=== PATIENT | female | born 1960 | race Caucasian/White ===

== ENCOUNTER 2017-08-17 15:26 | Emergency (ER) | payer MEDICARE, MEDICAID ==
--- NOTE | 2017-08-17 14:17 | EDM.PDOC ---
ED HPI GENERAL MEDICAL PROBLEM - General Stated Complaint: IN BY AMBULANCE Time Seen by Provider: 08/17/17 14:00 Source of Information: Reports: Patient History Limitations: Reports: No Limitations - History of Present Illness INITIAL COMMENTS - FREE TEXT/NARRATIVE: This 57 yo female patient was brought to the ED by [facility] due to a ground level fall. The patient reports that she was in her wheelchair attempting to cross the street when the wheelchair fell off the curb. The patient reports that she hit the back of her head during the fall. The patient has a history of 7 previous strokes causing her to be in a wheelchair. The patient reports that she pushes the wheelchair backwards in order to move. The patient denies any loss of consciousness before, during or after the fall. The patient reports that she has pain to the back of her head and pain to her neck with movement. Onset: Today Duration: Minutes: Location: Reports: Head (posterior scalp), Neck (right sided neck stiffness) Quality: Reports: Ache, Dull, Throbbing Improves with: Reports: None Worsens with: Reports: None Associated Symptoms: Reports: No Other Symptoms - Related Data Allergies Allergy/AdvReac Type Severity Reaction Status Date / Time shellfish derived Allergy Airway Verified 01/12/15 11:30 Tightness Home Meds: Home Meds Aspirin/Calcium Carbonate/Mag [Aspirin Buffered 325 mg Tab] 325 mg PO DAILY [History] DULoxetine HCl [Cymbalta] 60 mg PO DAILY 01/12/15 [History] Dextromethorphan HBr/Quinidine [Nuedexta 20-10 MG] 1 each PO BEDTIME 01/12/15 [ History] Docusate Sodium [Colace] 100 mg PO BID 01/12/15 [History] Insulin Glarg,Human.Rec.Analog [Lantus] 120 unit SUBCUT BEDTIME 01/12/15 [ History] Isosorbide Mononitrate [Imdur] 60 mg PO DAILY 01/12/15 [History] Metoprolol Tartrate [Lopressor] 50 mg PO BID 01/12/15 [History] Nitroglycerin [Nitrostat] 0.4 mg SL Q5M PRN 01/12/15 [History] Potassium Chloride [Klor-Con M20] 20 meq PO DAILY 01/12/15 [History] Pregabalin [Lyrica] 75 mg PO BID 01/12/15 [History] Rosuvastatin [Crestor] 40 mg PO BEDTIME 01/12/15 [History] Warfarin [Coumadin] 2 mg PO .FRI SUN 01/12/15 [History] Warfarin [Coumadin] 4 mg PO .MONTUESWEDTHURSAT 01/12/15 [History] traMADol [Ultram] 50 mg PO Q8H PRN 01/12/15 [History] Amoxicillin/Clavulanate K [Augmentin 875 MG/125 MG] 1 tab PO Q12HR #14 tablet [Rx] Mupirocin Oint [Bactroban Oint] 1 gm TOP TID #1 tube 01/15/15 [Rx] Sulfamethoxazole/Trimethoprim [Septra DS] 1 tab PO BID #14 tablet 01/15/15 [Rx] Past Medical History Other OB/BYN History: polyps on uterus and ovaries Other Neuro History: Psuedo Bulbar affect disorder Other Psychiatric History: Psuedo Bulbar Disorder Other Dermatologic History: Diabetic ulcers to bilateral legs ED ROS GENERAL - Review of Systems Review Of Systems: ROS reveals no pertinent complaints other than HPI. ED EXAM, HEAD INJURY - Physical Exam Exam: See Below Exam Limited By: No Limitations General Appearance: Alert, WD/WN, Mild Distress Head: Scalp Hematoma (posterior ), Scalp Tenderness Nexus Criteria: Painful Distraction Injuries. No: Posterior, Midline Cervical Tenderness, Evidence of Intoxication, Altered Level of Consciousness, Focal Neurological Deficit Eyes: Bilateral Eye: EOMI, Normal Inspection, PERRL Ears: Normal External Exam, Normal Canal, Hearing Grossly Normal, Normal TMs Nose: Normal Inspection, Normal Mucousa, No Blood Throat/Mouth: Normal Inspection, Normal Lips, Normal Teeth, Normal Gums, Normal Oropharynx, Normal Voice, No Airway Compromise Neck: Limited Range of Motion (to to pain with movement) Respiratory: No Respiratory Distress, Lungs Clear, Normal Breath Sounds, No Accessory Muscle Use, Chest Non-Tender Cardiovascular: Normal Peripheral Pulses, Regular Rate, Rhythm, No Edema, No Gallop, No JVD, No Murmur, No Rub GI/Abdominal Exam: Normal Bowel Sounds, Soft, Non-Tender, No Organomegaly, No Distention, No Abnormal Bruit, No Mass (Female) Exam: Deferred Rectal (Female) Exam: Deferred Back Exam: Full Range of Motion, Normal Inspection, NT Extremities: Normal Inspection, Normal Range of Motion, Non-Tender, No Pedal Edema, Normal Capillary Refill Neurologic: hair salon manager II-XII nml As Tested, No Motor/Sensory Deficits, Alert, Normal Mood/Affect, Oriented x 3 Skin: Normal Color - Sandrine Coma Score Best Eye Response ([place]): (4) Open Spontaneously Best Verbal Response (Sand[place]): (5) Oriented Best Motor Response ([place]): (6) Obeys Commands Sandrine Total: 15 Course - Orders/Labs/Meds Labs: Laboratory Tests 08/17/17 08/17/17 08/17/17 Range/Units 13:58 13:58 13:58 WBC 6.0 (5.0-10.0) 10^3/uL RBC 4.37 (4.2-5.4) 10^6/uL Hgb 12.5 (12.0-16.0) g/dL Hct 38.4 (37.0-47.0) % MCV 87.9 (80-100) fL MCH 28.6 (27.0-34.0) pg MCHC 32.6 L (33.0-35.0) g/dL Plt Count 178 (150-450) 10^3/uL Neut % (Auto) 48.7 (42.2-75.2) % Lymph % (Auto) 42.1 (20.5-50.1) % [place] % (Auto) 6.1 (2-8) % Eos % (Auto) 2.8 (1.0-3.0) % Baso % (Auto) 0.3 (0.0-1.0) % PT 20.6 H (9.0-12.0) SEC INR 2.1 H (0.9-1.2) Sodium 134 L (135-145) mmol/L Potassium 5.0 (3.6-5.0) mmol/L Chloride 99 L (101-111) mmol/L Carbon Dioxide 27.0 (21.0-31.0) mmol/L Anion Gap 13.0 BUN 23 H (7-18) mg/dL Creatinine 1.2 (0.6-1.3) mg/dL Est Cr Clr Drug Dosing TNP Estimated GFR (MDRD) 46 BUN/Creatinine Ratio 19.16 Glucose 457 H* (74-105) mg/dL Calcium 8.9 (8.4-10.2) mg/dl Total Bilirubin 0.6 (0.2-1.0) mg/dL AST 24 (10-42) IU/L ALT 25 (10-60) IU/L Alkaline Phosphatase 98 (42-121) IU/L Total Protein 6.5 L (6.7-8.2) g/dl Albumin 2.9 L (3.2-5.5) g/dl Globulin 3.6 Albumin/Globulin Ratio 0.81 Meds: Medications Discontinued Medications Generic Name Dose Route Start Last Admin Trade Name Freq PRN Reason Stop Dose Admin Insulin Aspart 50 unit 08/17/17 15:09 Novolog SUBCUT 08/17/17 15:10 ONETIME ONE Departure - Departure Time of Disposition: 15:20 Disposition: Home, Self-Care 01 Condition: Fair Clinical Impression: Hyperglycemia, Fall from ground level Contusion Qualifiers: Encounter type: initial encounter Contusion area: head Contusion of head detail : scalp Qualified Code(s): S00.03XA - Contusion of scalp, initial encounter - Discharge Information Instructions: Hyperglycemia, [id number] Forms: ED Department Discharge Care Plan Goals: The patient was advised of the examination, lab and CT results during the visit. The patient was given 50 units of Novolog while in the ED for high blood sugar levels. The patient was encourage to compress and ice the contusion to the posterior head. If the patient has any additional symptoms or concerns, the patient should follow-up with her primary care facility or return to the emergency department.
[2017-08-17 14:31] LABS: CHLORIDE,CL 99 mmol/L (101-111); SODIUM,NA 134 mmol/L (135-145)
--- NOTE | 2017-08-17 14:55 | CT ---
Clinical history: 57-year-old hypertensive and obese diabetic female on anticoagulants injured in a f all (from wheelchair). TECHNIQUE: Volume acquisition of data emergency unenhanced CT scan of the cervical spine obtained whi pierce the patient was lying supine on the Siemens multi slice scanner [place], [place]. All data archived in the PACS system for storage, reformatting and study. 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 interspace narrowing. Hypertrophic marginal/uncinate spur formati on C3-C4, C4-5, C5-6 and C6-C7 levels. *No sign of prevertebral soft tissue swelling, acute cervical spine fracture, spondylolisthesis or ju mped locked facet. Scoliosis.
--- NOTE | 2017-08-17 15:00 | CT ---
Clinical history: 57-year-old obese diabetic female injured in fall from wheelchair (patient on antic oagulants). TECHNIQUE: Volume acquisition of data emergency unenhanced CT scan of the head and brain obtained wit h the patient was lying supine on the Siemens multi slice CT scanner [place], [place]. All data archived in the PACS system for storage, reformatting and study (below/brai n windows). Note: significant positional artifact. Interpretation: Uniformly thick bony calvarium and no sign of skull fracture, underlying brain contus ion or extracerebral/intracranial epidural/subdural hematoma. (Dense calcifications in the falx that were present anteriorly midline on December 2014 CT exam) No new evidence of acute cerebral, intraventricular or subarachnoid bleed. Suspicious focal area decreased attenuation patient's brainstem (axial scan slice #13) that could ref lect positional artifact however close clinical correlation requested. No other new areas of ischemic infarct identified in the interval since 12 January 2015 exam. CONCLUSION: No new evidence skull fracture or acute intracranial bleed. See comment regarding brainst em above.
[2017-08-17] MEDS: Insulin Aspart 100 Units/ML 3 ML Pen SUBCUT ONE (15:20)
== END 2017-08-17 15:52 | disposition home or self-care (01) ==
LOC: DL.ED 15:26
DX: S00.03XA Contusion of scalp, initial encounter (principal); R73.9 Hyperglycemia, unspecified; Z79.82 Long term (current) use of aspirin; Z79.899 Other long term (current) drug therapy; Z91.013 Allergy to seafood; W05.0XXA Fall from non-moving wheelchair, initial encounter; Y92.410 Unspecified street and highway as the place of occurrence of the external cause
CPT/HCPCS: 36415; 70450; 72125; 80053; 82962; 85025; 85610; 96372; 99285; J1815

== ENCOUNTER 2018-12-06 13:49 | Emergency (ER) | payer MEDICARE, MEDICAID ==
--- NOTE | 2018-12-06 13:50 | EDM.PDOC ---
ED HPI GENERAL MEDICAL PROBLEM - General Chief Complaint: Upper Extremity Injury/Pain Stated Complaint: AMBULANCE Time Seen by Provider: 12/06/18 13:50 Source of Information: Reports: Patient, EMS, Group Home Records, Old Records , RN, RN Notes Reviewed History Limitations: Reports: No Limitations - History of Present Illness INITIAL COMMENTS - FREE TEXT/NARRATIVE: Pt arrives to ER from [facility] with report of left shoulder pain sustained about 3 days ago from a ground level fall that occurred as she was transferring from a commode to her wheelchair. Denies head injury or neck pain. [facility] staff reported pt is drowsy today, but unknown duration of drowsiness. EMS crew reports pt has low BP today. Pt complains of left should pain. Pt denies chest pain now or recently, but later in ER course she did admit to "severe heart burn" recently which she attributed to acid reflux. She denies feeling drowsy or lightheaded. Pt denies nausea, vomiting, cough, dysuria , fever, chills, or any other complaints. Onset: Unknown/Unsure Duration: Day(s): (3-4), Constant Location: Reports: Upper Extremity, Left Quality: Reports: Ache Severity: Severe Improves with: Reports: Immobilization Worsens with: Reports: Movement Context: Reports: Other (Fall) Associated Symptoms: Reports: No Other Symptoms - Related Data Allergies Allergy/AdvReac Type Severity Reaction Status Date / Time fish derived Allergy Airway Verified 02/01/18 10:16 Tightness shellfish derived Allergy Airway Verified 01/12/15 11:30 Tightness shrimp Allergy Airway Verified 02/01/18 10:16 Tightness Home Meds: Home Meds Aspirin/Calcium Carbonate/Mag [Aspirin Buffered 325 mg Tab] 325 mg PO DAILY [History] DULoxetine HCl [Cymbalta] 60 mg PO DAILY 01/12/15 [History] Dextromethorphan HBr/Quinidine [Nuedexta 20-10 MG] 1 cap PO BEDTIME 01/12/15 [ History] Docusate Sodium [Colace] 100 mg PO DAILY 01/12/15 [History] Isosorbide Mononitrate [Imdur] 60 mg PO DAILY 01/12/15 [History] Metoprolol Tartrate [Lopressor] 50 mg PO BID 11/16/15 [History] Potassium Chloride [Klor-Con M20] 20 meq PO DAILY 01/12/15 [History] Rosuvastatin [Crestor] 40 mg PO BEDTIME 01/12/15 [History] Warfarin [Coumadin] 2 mg PO .FRI SUN 01/12/15 [History] Warfarin [Coumadin] 4 mg PO .MONWEDFRI 01/12/15 [History] Acetaminophen [Tylenol Arthritis Pain] 650 mg PO Q4HR PRN 02/01/18 [History] Insulin Aspart [NovoLOG] 4 unit SUBCUT DAILY 02/01/18 [History] Insulin Detemir [Levemir Flextouch] 60 unit SQ BID 02/01/18 [History] Insulin Aspart [NovoLOG] 10 units SUBCUT TID 12/06/18 [History] Past Medical History Cardiovascular History: Reports: Angina, High Cholesterol, Hypertension Other Respiratory History: unable to assess; no hx seen on papers Other Gastrointestinal History: unable to assess Genitourinary History: Reports: Other (See Below) Other Genitourinary History: hyperkalemia 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: polyps on uterus and ovaries Other Musculoskeletal History: unable to assess Neurological History: Reports: CVA (per pt.) Other Neuro History: Psuedo Bulbar affect disorder Psychiatric History: Reports: Mood Swings, Psychosis, Suicidal Ideation Other Psychiatric History: Psuedo Bulbar Disorder Endocrine/Metabolic History: Reports: Diabetes, Type II, Obesity/BMI 30+ Other Hematologic History: unable to assess Other Immunologic History: unable to assess Other Oncologic History: unable to assess Other Dermatologic History: 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 ED EXAM, GENERAL - Physical Exam Exam: See Below Exam Limited By: No Limitations General Appearance: Alert, No Apparent Distress, Obese Eye Exam: Bilateral Eye: EOMI, Normal Inspection, PERRL Ears: Normal External Exam, Hearing Grossly Normal Nose: Normal Inspection, Normal Mucosa, No Blood Throat/Mouth: Normal Inspection, Normal Lips, Normal Voice, No Airway Compromise Head: Atraumatic, Normocephalic Neck: Normal Inspection, Non-Tender, Full Range of Motion Respiratory/Chest: No Respiratory Distress, Lungs Clear, No Accessory Muscle Use , Chest Non-Tender, Decreased Breath Sounds Cardiovascular: Regular Rate, Rhythm Peripheral Pulses: 3+: Radial (L), Radial (R) GI/Abdominal: Normal Bowel Sounds, Soft, Non-Tender, No Distention, Other ( Benign obese abdomen) (Female) Exam: Deferred Rectal (Female) Exam: Deferred Back Exam: Normal Inspection Extremities: Normal Capillary Refill, Limited Range of Motion (Left shoulder), Other (Generalized left shoulder tenderness with no visible swelling, bruising, or skin disruption). No: Joint Swelling, Increased Warmth, Mottled, Pallor, Redness Neurological: Alert, Oriented, Other (Chronic left hemiparesis, stable) Psychiatric: Depressed Mood, Flat Affect Skin Exam: Warm, Dry, Intact, Normal Color, No Rash EKG INTERPRETATION EKG Date: 12/06/18 Time: 14:44 Rhythm: Other (SR) Rate (Beats/Min): 75 [place]: Normal P-Wave: Present QRS: Normal ST-T: Depressed (Lead 1, and lateral leads possibly representing ischemia) QT: Normal Comparison: Change From Previous EKG (Lateral lead depression is new compared to EKG dated 01/2018.) Course - Vital Signs Last Recorded V/S: Last Vital Signs Temp 98.1 F 12/06/18 13:46 Pulse 80 12/06/18 13:46 Resp 25 H 12/06/18 13:46 BP 78/46 L 12/06/18 13:46 Pulse Ox 94 L 12/06/18 13:46 - Orders/Labs/Meds Orders: Active Orders 24 hr Category Date Time Status Blood Glucose Check, Bedside [RC] ONETIME Care 12/06/18 14:05 Active EKG 12 Lead [EKG Documentation Completion] [RC] STAT Care 12/06/18 14:18 Active Peripheral IV Care [RC] . DIRECTED Care 12/06/18 14:19 Active CULTURE BLOOD [BC] Stat Lab 12/06/18 14:28 Received UA RFX SOLEDAD AND CULT IF INDIC [URIN] Stat Lab 12/06/18 15:34 Ordered Sodium Chloride 0.9% [Saline Flush] Med 12/06/18 14:18 Active 10 ml FLUSH ASDIRECTED PRN Peripheral IV Insertion Adult [OM.PC] Stat Oth 12/06/18 14:18 Ordered Medication Orders Sodium Chloride (Saline Flush) 10 ml FLUSH ASDIRECTED PRN PRN Reason: Keep Vein Open Last Admin: 12/06/18 14:43 Dose: 10 ml Labs: Laboratory Tests 12/06/18 12/06/18 12/06/18 Range/Units 14:28 14:32 14:32 WBC 19.0 H (5.0-10.0) 10^3/uL RBC 4.47 (4.2-5.4) 10^6/uL Hgb 13.0 (12.0-16.0) g/dL Hct 40.9 (37.0-47.0) % MCV 91.5 D (80-100) fL MCH 29.1 (27.0-34.0) pg MCHC 31.8 L (33.0-35.0) g/dL Plt Count 183 (150-450) 10^3/uL Neut % (Auto) 74.6 (42.2-75.2) % Lymph % (Auto) 13.4 L (20.5-50.1) % [place] % (Auto) 11.9 H (2-8) % Eos % (Auto) 0.0 L (1.0-3.0) % Baso % (Auto) 0.1 (0.0-1.0) % PT 23.3 H (9.0-12.0) SEC INR 2.4 H (0.9-1.2) Sodium 138 (135-145) mmol/L Potassium 5.4 H (3.6-5.0) mmol/L Chloride 100 L (101-111) mmol/L Carbon Dioxide 28.0 (21.0-31.0) mmol/L Anion Gap 15.4 BUN 47 H D (7-18) mg/dL Creatinine 2.2 H (0.6-1.3) mg/dL Est Cr Clr Drug Dosing 25.46 mL/min Estimated GFR (MDRD) 23 BUN/Creatinine Ratio 21.36 Glucose 172 H (74-105) mg/dL POC Glucose (70-105) mg/dl Lactic Acid (0.5-2.2) mmol/L Calcium 8.4 (8.4-10.2) mg/dl Total Bilirubin 1.0 (0.2-1.0) mg/dL AST 32 (10-42) IU/L ALT 31 (10-60) IU/L Alkaline Phosphatase 61 (42-121) IU/L Troponin I 0.34 H* (0.00-0.02) ng/ml B-Natriuretic Peptide 1030 H (0-100) pg/ml Total Protein 7.0 (6.7-8.2) g/dl Albumin 2.9 L (3.2-5.5) g/dl Globulin 4.1 Albumin/Globulin Ratio 0.71 12/06/18 12/06/18 Range/Units 14:32 14:38 WBC (5.0-10.0) 10^3/uL RBC (4.2-5.4) 10^6/uL Hgb (12.0-16.0) g/dL Hct (37.0-47.0) % MCV (80-100) fL MCH (27.0-34.0) pg MCHC (33.0-35.0) g/dL Plt Count (150-450) 10^3/uL Neut % (Auto) (42.2-75.2) % Lymph % (Auto) (20.5-50.1) % [place] % (Auto) (2-8) % Eos % (Auto) (1.0-3.0) % Baso % (Auto) (0.0-1.0) % PT (9.0-12.0) SEC INR (0.9-1.2) Sodium (135-145) mmol/L Potassium (3.6-5.0) mmol/L Chloride (101-111) mmol/L Carbon Dioxide (21.0-31.0) mmol/L Anion Gap BUN (7-18) mg/dL Creatinine (0.6-1.3) mg/dL Est Cr Clr Drug Dosing mL/min Estimated GFR (MDRD) BUN/Creatinine Ratio Glucose (74-105) mg/dL POC Glucose 159 H (70-105) mg/dl Lactic Acid 1.2 (0.5-2.2) mmol/L Calcium (8.4-10.2) mg/dl Total Bilirubin (0.2-1.0) mg/dL AST (10-42) IU/L ALT (10-60) IU/L Alkaline Phosphatase (42-121) IU/L Troponin I (0.00-0.02) ng/ml B-Natriuretic Peptide (0-100) pg/ml Total Protein (6.7-8.2) g/dl Albumin (3.2-5.5) g/dl Globulin Albumin/Globulin Ratio Meds: Medications Generic Name Dose Route Start Last Admin Trade Name Freq PRN Reason Stop Dose Admin Sodium Chloride 10 ml 12/06/18 14:18 12/06/18 14:43 Saline Flush FLUSH 10 ml ASDIRECTED PRN Administration Keep Vein Open Discontinued Medications Generic Name Dose Route Start Last Admin Trade Name Freq PRN Reason Stop Dose Admin Aspirin 324 mg 12/06/18 15:06 12/06/18 15:15 Aspirin PO 12/06/18 15:07 324 mg ONETIME ONE Administration Sodium Chloride 1,000 mls @ 999 mls/hr 12/06/18 14:18 12/06/18 14:42 Normal Saline IV 12/06/18 15:18 999 mls/hr .BOLUS ONE Administration Ceftriaxone Sodium 2 gm/ 100 mls @ 200 mls/hr 12/06/18 15:01 12/06/18 15:24 Sodium Chloride IV 12/06/18 15:30 200 mls/hr ONETIME ONE Administration - Radiology Interpretation Free Text/Narrative:: XR Left Shoulder: no acute fractures or dislocation, arthritic changes per radiologist report. XR Chest: no acute process per radiologist report. - Re-Assessments/Exams Free Text/Narrative Re-Assessment/Exam: 12/06/18 15:40 Pt presented with left shoulder pain which she presumed to be from an injury. She was found to be hypotensive with WBC 19,000. No obvious source of infection was found, and pt was afebrile. Rocephin 2g IV was given empirically while awaiting remaining lab results. EKG did show some new lateral ST-T segment depression consistent with ischemia. Troponin came back elevated at 0.34 and INR 2.4 (pt on chronic Warfarin due to CVA). Aspirin 324mg was given. Pt was not Heparinized due to chronic Warfarin tx. BNP was 1030, no old BNP available for comparison. Pt's DPA Maru Salas contacted [phone]: Maru wishes to have the pt transferred to [facility] for further evaluation. Departure - Departure Time of Disposition: 15:25 Disposition: DC/Tfer to Acute Hospital 02 Condition: Serious, Critical Clinical Impression: Non-ST elevated myocardial infarction (non-STEMI), SIRS (systemic inflammatory response syndrome) - Discharge Information *PRESCRIPTION DRUG MONITORING PROGRAM REVIEWED*: No *COPY OF PRESCRIPTION DRUG MONITORING REPORT IN PATIENT HAI: No Forms: ED Department Discharge, Interfacility Transfer EMTALA - My Orders Last 24 Hours: My Active Orders 12/06/18 14:05 Blood Glucose Check, Bedside [RC] ONETIME 12/06/18 14:18 EKG 12 Lead [EKG Documentation Completion] [RC] STAT Sodium Chloride 0.9% [Saline Flush] 10 ml FLUSH ASDIRECTED PRN Peripheral IV Insertion Adult [OM.PC] Stat 12/06/18 14:19 Peripheral IV Care [RC] . DIRECTED 12/06/18 14:28 CULTURE BLOOD [BC] Stat 12/06/18 15:34 UA RFX SOLEDAD AND CULT IF INDIC [URIN] Stat - Assessment/Plan Last 24 Hours: My Active Orders 12/06/18 14:05 Blood Glucose Check, Bedside [RC] ONETIME 12/06/18 14:18 EKG 12 Lead [EKG Documentation Completion] [RC] STAT Sodium Chloride 0.9% [Saline Flush] 10 ml FLUSH ASDIRECTED PRN Peripheral IV Insertion Adult [OM.PC] Stat 12/06/18 14:19 Peripheral IV Care [RC] . DIRECTED 12/06/18 14:28 CULTURE BLOOD [BC] Stat 12/06/18 15:34 UA RFX SOLEDAD AND CULT IF INDIC [URIN] Stat
[2018-12-06] MEDS ORDERED: Sodium Chloride 0.9% 10 ML Syringe FLUSH PRN (14:18)
[2018-12-06] MEDS ORDERED: Sodium Chloride 0.9% 1,000 ML IV ONE (14:18)
[2018-12-06 14:34] VITALS: BP 78/46; PULSE 80
--- NOTE | 2018-12-06 14:53 | CR ---
EXAMINATION: Shoulder Comp Lt SEX: Female AGE: 58 years CLINICAL HISTORY: 58-year-old female injured in Fall at assisted, Left shoulder pain. (AP portable and "Y" view left shoulder) INTERPRETATION: 1. Chronic severe ARTHRITIC CHANGES left shoulder and ipsilateral acromioclavicular joint. 2. Normal spacing between the acromion process scapula the head of the humerus. 3. No juxta-articular rotator cuff tendon calcifications. 4. No sign of pathologic skeletal lesion, acute left shoulder fracture, before meals separation or glenohumeral dislocation. 5. Underlying ribs are unremarkable. Left lung apex clear. CONCLUSION: No fracture or dislocation left shoulder. Arthritis.
[2018-12-06 15:01] LABS: ANION GAP 15.4
[2018-12-06] MEDS ORDERED: cefTRIAXone 2 GM in Sodium Chloride 0.9% 100 ML IV ONE (15:01)
[2018-12-06] MEDS ORDERED: Aspirin 81 MG Tab.Chew PO ONE (15:06)
--- NOTE | 2018-12-06 15:32 | CR ---
EXAMINATION: Chest 1V Frontal SEX: Female AGE: 58 years CLINICAL HISTORY: 58-year-old female emergency department with sepsis, unknown source. INTERPRETATION: Upright AP portable chest (x3). External day care supervisor leads. 1. Generally poor inspiratory effort obese female crowds lung markings but no focal lobar consolidation. 2. No atelectasis or collapse. No pneumothorax. 3. Normal cardiac silhouette without cephalization of vascular flow, alveolar edema or dependent effusion. 4. Chronic hypertrophic arthritic changes of the spine. CONCLUSION: No acute cardiopulmonary abnormality.
== END 2018-12-06 16:01 ==
LOC: DL.ED 13:49
DX: I21.4 Non-ST elevation (NSTEMI) myocardial infarction (principal); R65.10 Systemic inflammatory response syndrome (SIRS) of non-infectious origin without acute organ dysfunction; I10 Essential (primary) hypertension; E11.9 Type 2 diabetes mellitus without complications; Z91.013 Allergy to seafood; Z79.82 Long term (current) use of aspirin; Z79.899 Other long term (current) drug therapy; Z79.01 Long term (current) use of anticoagulants; Z79.4 Long term (current) use of insulin; Z86.73 Personal history of transient ischemic attack (TIA), and cerebral infarction without residual deficits
CPT/HCPCS: 36415; 51701; 71045; 73030; 80053; 81001; 82962; 83605; 83880; 84484; 85025; 85610; 87040; 93005; 96361; 96365; 99285; A9270; J0696; J7030; J7050